=== PATIENT | female | born 1965 | race Caucasian/White ===

== ENCOUNTER 2016-09-09 08:06 | Observation (INO) | payer BC ==
[2016-09-04 13:29] LABS: BASOPHILS 0.1 %; BASOPHILS ABSOLUTE 0.01 10/3/uL (0.0-0.16); EOSINOPHILS 1.3 %; EOSINOPHILS ABSOLUTE 0.09 10/3/uL (0.0-0.53); HEMATOCRIT 40.3 % (36.0-48.0); HEMOGLOBIN 13.5 g/dL (12.0-16.0); IMMATURE GRANULOCYTES 0.3 %; IMMATURE GRANULOCYTES ABSOLUTE 0.02 10/3/uL (0.0-0.11); LYMPHOCYTES 31.8 %; LYMPHOCYTES ABSOLUTE 2.19 10/3/uL (0.67-4.30); MEAN CORPUS HGB CONC 33.5 g/dL (32.0-36.0); MEAN CORPUSCULAR HEMOGLOB 29.2 pg (26.0-34.0); MEAN PLATELET VOLUME 9.1 fL (9.2-13.0); MONOCYTES 6.7 %; MONOCYTES ABSOLUTE 0.46 10/3/uL (0.21-1.20); NEUTROPHILS 59.8 %; NEUTROPHILS ABSOLUTE 4.12 10/3/uL (2.02-8.40); PLATELET COUNT 223 10/3/uL (150-400); RBC DISTRIBUTION WIDTH 14.1 % (12.0-16.0); RED CELL COUNT 4.63 10/6/uL (4.0-5.6); WHITE BLOOD CELLS 6.9 10/3/uL (4.5-10.5)
[2016-09-04 13:31] LABS: MANUAL DIFF NO %
[2016-09-04 13:52] LABS: A/G RATIO 1.1 (0.7-1.9); ALBUMIN 3.7 G/DL (3.5-5.0); ALKALINE PHOSPHATASE 123 U/L (45-117); BUN (BLOOD UREA NITROGEN) 12 MG/DL (6-23); CALCIUM, SERUM 8.8 MG/DL (8.5-10.4); CHLORIDE, SERUM 106 MMOL/L (96-112); CO2 (CARBON DIOXIDE) 29 MMOL/L (24-34); CREATININE 0.94 MG/DL (0.55-1.02); GFR AFRICAN AMERICAN 82 ML/MIN (>=60); GFR NON AFRICAN AMERICAN 71 ML/MIN (>=60); GLOBULIN 3.5 G/DL (2.5-4.1); GLUCOSE, SERUM 98 MG/DL (60-99); POTASSIUM, SERUM 4.9 MMOL/L (3.5-5.3); SGOT(AST) 28 U/L (5-40); SGPT(ALT) 41 U/L (5-65); SODIUM, SERUM 142 MMOL/L (135-148); TOTAL BILIRUBIN 0.3 MG/DL (0-1.2); TOTAL PROTEIN 7.2 G/DL (6.0-8.5)
[2016-09-05 13:46] LABS: GAMMA GT 79 U/L (5-85)
--- NOTE | ~2016-09-09 | OP ---
Record Of Operation [facility] [address] [place]. [address] NAME: YAZAN SORIA : 67 STATUS : ADM Jose PAT#: [id number] AGE: 51 ADM/REG DATE : 09/09/16 MR#: [id number] REPORT SERV DATE: 09/09/16 DICTATED BY: REAGAN RINCON DATE: 09/09/16 REPORT STATUS : Draft TRANSCRIBED BY: MODL DATE: 09/09/16 DATE OF PROCEDURE: 09/09/2016 PREOPERATIVE DIAGNOSES: Recurrent paraesophageal hiatal hernia with refractory gastroesophageal reflux disorder, and impaired esophageal motility. POSTOPERATIVE DIAGNOSES: Recurrent paraesophageal hiatal hernia with refractory gastroesophageal reflux disorder, and impaired esophageal motility. PROCEDURE: Laparoscopic lysis of adhesions, reduction of paraesophageal hiatal hernia, repair of hiatal defect with 6 x 8 cm Ximena mesh and Toupet partial fundoplication. SURGEON: Reagan Rincon M.D. RESIDENT SURGEON: Alex Leiva MD ANESTHESIA: General. ESTIMATED BLOOD LOSS: 30 mL. DETAILS OF PROCEDURE: The patient arrived in the operating suite and was placed on the table in supine position. General anesthesia was obtained via an endotracheal tube. The patient was placed in modified lithotomy. The abdomen was prepped and draped in a sterile manner. Marcaine 0.5% with epinephrine was infiltrated over the supraumbilical left rectus muscle. A small incision was performed. A 10-mm blunt trocar inserted under laparoscopic visualization. The peritoneal cavity was insufflated with CO2 gas of 15 mmHg pressure. The patient was placed in reverse Trendelenburg. Additional trocar was inserted in the bilateral anterior axillary lines in the subxiphoid and right paramedian regions. Instruments were introduced. The lateral segment of the left lobe of the liver was retracted anteriorly with self-retaining retractor. The majority of the stomach was within the abdomen. Significant adhesions were noted in the region of the hiatus. Dissection was then proceeded along the medial edge of the right darren where clearly there was herniated stomach, taken down sharply without injuring the stomach, dividing scar, very difficult to discern scar from stomach, dissection proceeded very close to the liver which surprisingly did not bleed. Attention was then turned anteriorly and adhesions were again taken down sharply and along the medial edge of the left darren sharply and with the Harmonic mallory allowing large amount of stomach to be reduced from its left paramedian and paraesophageal location. Hernia sac was partially reduced as well. Attention was then returned to the right. Continued mobilization resulted tear in the right pleura, but no lung injury was noted. The right vagus nerve was clearly identified and protected, although the anterior vagus was never seen. After continued meticulous dissection, herniated stomach was totally reduced and adequate intraabdominal esophageal length without tension was established. Prior attenuated fundoplication was then carefully sharply taken down and prior sutures divided and the stomach partially mobilized. Placement of the orogastric tube was then confirmed. Lower esophagus encircled with one-fourth inch Kenyetta drain for manipulation retraction. The crura were then approximated with surprisingly only moderate tension using Record Of Operation [place] [id number] [facility] [place]. [address] NAME: YAZAN SORIA : 67 STATUS : ADM Jose PAT#: [id number] AGE: 51 ADM/REG DATE : 09/09/16 MR#: [id number] REPORT SERV DATE: 09/09/16 DICTATED BY: REAGAN RINCON DATE: 09/09/16 REPORT STATUS : Draft TRANSCRIBED BY: GADIEL DATE: 09/09/16 the 6 x 8 cm piece of Ximena mesh using horizontal mattress 0 Ethibond sutures posterior to the right vagus and the esophagus. A 270-degree fundic wrap was then accomplished without tension or twisting. This was secured along the right lateral edge of the esophagus and in the left lateral edge of the esophagus with 2-0 Ethibond sutures on each side. One suture affixed the wrap posteriorly to the posterior right darren. The orogastric tube and Whittington drain were then removed. Fluid was removed with suction. It was minimal. There was no evidence of gastric or esophageal injury. Liver retractor was removed after 15 Ronak drain was placed in the mediastinum exiting the left anterior axillary line. Trocar site was secured with a 3-0 nylon suture. After trocars were removed, skin closure was performed at all sites with subcuticular 4-0 Monocryl. Sterile dressing was applied. The patient was awakened, extubated, and taken to PACU. /GADIEL Reagan Rincon M.D. / [id number] CC: Reagan Rincon M.D.
[~2016-09-09 08:06] MED LIST: BENTYL10 PO; IRON; MINIVELLE1 EACH TOP; PERCOCET1 TA2 PO; PROMETRIUM PO; PROMETRIUM200 MG PO; VITAMIN D1000 UNI1 PO; WELL75 PO; WELLSR100 PO; X5 PO; XANAX OR; XIFAXAN PO; ZOL100 PO
[2016-09-10] MEDS ORDERED: ZOFRAN4 PO (08:36)
[2016-09-10] MEDS ORDERED: PCET PO (08:37)
== END 2016-09-10 12:22 | disposition home or self-care (01) ==
LOC: SDC 08:06 → SDC/OF 13:47 → 5SO 18:15
PROVIDERS: Specialist
PROC: 0BUR4JZ (ICD-10-PCS; 2016-09-09)
PROC: 0BUS4JZ (ICD-10-PCS; principal; 2016-09-09 09:30)
DX: K44.9 Diaphragmatic hernia without obstruction or gangrene (principal); E66.9 Obesity, unspecified; H91.92 Unspecified hearing loss, left ear; F41.9 Anxiety disorder, unspecified; F32.9 Major depressive disorder, single episode, unspecified; Z68.32 Body mass index [BMI] 32.0-32.9, adult; Z91.041 Radiographic dye allergy status; Z88.8 Allergy status to other drugs, medicaments and biological substances; Z79.899 Other long term (current) drug therapy; Z98.890 Other specified postprocedural states; Z98.51 Tubal ligation status; Z90.49 Acquired absence of other specified parts of digestive tract
CPT/HCPCS: 80053; 82977; 85025; 93005; 96372; 96374; A9270-GY; C1781; G0378; J0690; J1170; J1885; J2250; J2270; J2405; J2710; J3010